=== PATIENT | female | born 1980 | race Caucasian/White ===

== ENCOUNTER 2017-05-01 12:17 | Inpatient (IN) | payer OTHER ==
[2017-05-01] VITALS (42 sets, daily range): BP systolic 108–154; BP diastolic 52–96; PULSE 55–120; TEMP 97.4–98.4
[~2017-05-01] VITALS: Ht 162.6 cm; Wt 95.5 kg
[2017-05-01] MEDS ORDERED: PRENATAL (12:44)
[2017-05-01 14:08] LABS: BASO # 0.1 (0.0-0.2); BASO % 0.3 % (0.0-2.0); EOS # 0.1 (0.0-0.7); EOS % 0.6 % (0-4.0); GRAN # 14.8 (1.4-6.5); GRAN % 79.5 % (42.2-75.2); HEMOGLOBIN 12.6 g/dl (12.5-16.0); LYMPH # 2.5 (1.2-3.4); LYMPH % 13.6 % (20.0-51.0); MEAN CELL VOLUME 88 fl (80.0-100.0); MEAN CORPUSCULAR HEMOGLOBIN 31 pg (27.0-31.0); MEAN CORPUSCULAR HGB CONC 35 g/dl (33.0-37.0); MEAN PLATELET VOLUME 10.6 fl (7.4-10.4); MONO % 5.4 % (1.7-9.3); PLATELET COUNT 241 K/mm3 (130-400); RED BLOOD COUNT 4.09 M/mm3 (4.10-5.30); REDCELL DISTRIBUTION WIDTH-CV 13.8 % (11.5-14.5)
[2017-05-02] VITALS (15 sets, daily range): BP systolic 89–143; BP diastolic 43–75; PULSE 69–123; TEMP 97.4–98.3
[2017-05-03 01:00] VITALS: BP 128/69; PULSE 67; TEMP 97.9
[2017-05-03 07:51] VITALS: BP 123/85; PULSE 66; TEMP 97.3
[2017-05-03] MEDS ORDERED: PERCOCET 325 MG1 TA2 PO (11:03)
[2017-05-03] MEDS ORDERED: IBU600 MG PO (11:03)
[2017-05-03 16:07] VITALS: BP 127/70; PULSE 59; TEMP 97.7
[2017-05-03 19:45] VITALS: BP 130/82; PULSE 62; TEMP 98
[2017-05-04 06:45] VITALS: BP 125/65; PULSE 61; TEMP 97.5
[2017-05-04 16:23] VITALS: BP 128/73; PULSE 56; TEMP 97.6
== END 2017-05-04 18:00 | disposition home or self-care (01) | DRG 775 ==
LOC: LDRO 12:17 → LDR 12:54 → LDRO 13:49 → OB 13:51 → LDR 13:51 → OB 05-02 03:50
PROVIDERS: Obstetrics & Gynecology
PROC: 10E0XZZ Delivery of Products of Conception, External Approach (ICD-10-PCS; principal; 2017-05-01)
PROC: 0HQ9XZZ Repair Perineum Skin, External Approach (ICD-10-PCS; 2017-05-01)
DX: O48.0 Post-term pregnancy (principal); O71.82 Other specified trauma to perineum and vulva; Z3A.40 40 weeks gestation of pregnancy; Z37.0 Single live birth
CPT/HCPCS: J2590; J7120

== ENCOUNTER → 2017-05-16 | Outpatient (CLI) | payer OTHER ==
[~2017-05-16] MED LIST: IBU600 MG PO; PERCOCET 325 MG1 TA2 PO; PRENATAL
== END ==
LOC: OLC 13:11
DX: Z39.1 Encounter for care and examination of lactating mother (principal); Z71.89 Other specified counseling

== ENCOUNTER → 2018-01-12 | Outpatient (CLI) | payer OTHER | LOC: MC.RAD 08:30 | DX: N63.10 Unspecified lump in the right breast, unspecified quadrant (principal); Z80.3 Family history of malignant neoplasm of breast; Z98.890 Other specified postprocedural states | CPT/HCPCS: G0279 ==

== ENCOUNTER 2019-05-28 23:33 | Observation (INO) | payer OTHER ==
[~2019-05-28] VITALS: Ht 162.6 cm; Wt 84.5 kg
--- NOTE | 2019-05-29 00:35 | NUR ---
0035- OB NURSE TO BEDSIDE. PT DENIES LEAKING FLUID, VAGINAL BLEEDING, OR CONTRACTIONS. STATES SHE IS FEELING BOTH BABIES MOVE. DOPPLER HEART TONES OBTAINED ON BOTH BABIES. BABY A IN LLQ 135-155 WITH AUDIBLE MOVEMENT. BABY B RUQ 150-165 WITH AUDIBLE MOVEMENT. PT DENIES FURTHER NEEDS AT THIS TIME.
[2019-05-29 00:36] LABS: COLLECTION METHOD CLEAN CATCH
[2019-05-29 00:39] LABS: BASO # 0.1 (0.0-0.2); BASO % 0.3 % (0.0-2.0); EOS # 0.2 (0.0-0.7); EOS % 0.7 % (0-4.0); GRAN # 17.2 (1.4-6.5); GRAN % 79.8 % (42.2-75.2); HEMOGLOBIN 11.8 g/dl (12.5-16.0); LYMPH # 2.8 (1.2-3.4); LYMPH % 12.9 % (20.0-51.0); MEAN CELL VOLUME 89 fl (80.0-100.0); MEAN CORPUSCULAR HEMOGLOBIN 30 pg (27.0-31.0); MEAN CORPUSCULAR HGB CONC 34 g/dl (33.0-37.0); MEAN PLATELET VOLUME 10.1 fl (7.4-10.4); MONO # 1.2 (0.1-0.6); MONO % 5.6 % (1.7-9.3); PLATELET COUNT 289 K/mm3 (130-400); RED BLOOD COUNT 3.94 M/mm3 (4.10-5.30)
[2019-05-29 00:42] LABS: HEMATOCRIT 34.9 % (37.0-47.0)
[2019-05-29 00:46] LABS: MUCOUS Present /lpf; PH 5 (5-8); URINE APPEARANCE Cloudy; URINE BACTERIA Rare /hpf; URINE BILIRUBIN Negative (NEGATIVE); URINE BLOOD 2+ (NEGATIVE); URINE COLOR Yellow; URINE GLUCOSE 1+ (NEGATIVE); URINE KETONE 1+ (NEGATIVE); URINE LEUKOCYTE ESTERASE 2+ (NEGATIVE); URINE NITRATE Negative (NEGATIVE); URINE PROTEIN(semi-quant) 1+ (NEGATIVE); URINE UROBILINOGEN Negative (NEGATIVE)
[2019-05-29 00:50] LABS: ALBUMIN 3.9 gm/dL (3.5-5.0); BILIRUBIN,TOTAL 0.3 mg/dL (0.0-1.0); C-REACTIVE PROTEIN 1.1 mg/dL (0.0-0.9); CALCIUM 9.7 mg/dL (8.4-10.2); CREATININE, serum 0.69 (0.52-1.25); POTASSIUM 3.9 mmol/L (3.4-5.0); TOTAL PROTEIN 7.3 gm/dL (6.4-8.2)
[2019-05-29 03:07] LABS: COLLECTION METHOD CLEAN CATCH
[2019-05-29 03:12] LABS: MUCOUS Present /lpf; PH 6 (5-8); SQUAMOUS EPITHELIAL 0-2 /hpf; URINE APPEARANCE Clear; URINE BACTERIA None Seen /hpf; URINE BILIRUBIN Negative (NEGATIVE); URINE BLOOD 2+ (NEGATIVE); URINE COLOR Yellow; URINE GLUCOSE Negative (NEGATIVE); URINE KETONE Trace (NEGATIVE); URINE LEUKOCYTE ESTERASE Negative (NEGATIVE); URINE NITRATE Negative (NEGATIVE); URINE PROTEIN(semi-quant) 1+ (NEGATIVE); URINE RBC 0-2 /hpf; URINE UROBILINOGEN Negative (NEGATIVE)
--- NOTE | 2019-05-29 03:42 | NUR ---
0342- REPORT RECEIVED FROM ROSA CRAMER IN ER. 0405- PT TRANFERRED ON UNIT PER WHEELCHAIR, TO ROOM 217. 0410- NURSING ADMISSION HISTORY AND ASSESSMENT COMPLETE. VSS. AMNITRACE NEGNATHALIAVIE FOR AMNIOTIC FLUID. PLAN OF CARE DISCUSSED WITH PT AND HER . QUESTIONS ANSWERED. PT DENIES FURTHER NEEDS AT THIS TIME.
[2019-05-29 04:10] VITALS: BP 114/65; PULSE 74; TEMP 97.7
[2019-05-29] MEDS ORDERED: BONJESTA ER 201 EACH PO (04:31)
[2019-05-29 07:30] VITALS: BP 111/56; PULSE 76; TEMP 98.4
--- NOTE | 2019-05-29 07:30 | NUR ---
To room and assessment and vital signs completed. Bedside doppler on twins. Twin A in left lower quadrant FHR 142-158. Twin B in right upper quadrant FHR 148-158. Patient states she is feeling so much better and denies any pain.
--- NOTE | 2019-05-29 07:40 | NUR ---
Patient out of room via wheelchair and taken for Ultrasound.
--- NOTE | 2019-05-29 08:26 | NUR ---
Dr. Miller at nurses station, labs reviews, report that patient states she is feeling fine and denies pain, FHR's reported, materal vital signs reported, patient currently off unit for ultrasound.
[2019-05-29 12:33] VITALS: BP 119/67; PULSE 79; TEMP 97.8
[2019-05-29 12:45] LABS: BASO # 0.1 (0.0-0.2); BASO % 0.4 % (0.0-2.0); EOS # 0.1 (0.0-0.7); EOS % 0.6 % (0-4.0); GRAN # 12.4 (1.4-6.5); GRAN % 77.5 % (42.2-75.2); HEMOGLOBIN 10.5 g/dl (12.5-16.0); LYMPH # 2.5 (1.2-3.4); LYMPH % 15.4 % (20.0-51.0); MEAN CELL VOLUME 88 fl (80.0-100.0); MEAN CORPUSCULAR HEMOGLOBIN 30 pg (27.0-31.0); MEAN CORPUSCULAR HGB CONC 34 g/dl (33.0-37.0); MEAN PLATELET VOLUME 9.9 fl (7.4-10.4); MONO # 0.9 (0.1-0.6); MONO % 5.7 % (1.7-9.3); PLATELET COUNT 256 K/mm3 (130-400); RED BLOOD COUNT 3.51 M/mm3 (4.10-5.30); REDCELL DISTRIBUTION WIDTH-CV 14.3 % (11.5-14.5)
--- NOTE | 2019-05-29 15:41 | NUR ---
Patient ate a grilled chicken sandwich and grapes and finished around 1330. Patient denies any pain after eating. Patient very tearful and still unsure if she wants to have surgery now or wait. Is talking with family about it. Will notify this nurse when she makes her decision.
[2019-05-29 15:43] VITALS: BP 116/66; PULSE 80; TEMP 98
--- NOTE | 2019-05-29 16:04 | NUR ---
Patient has decided to continue with surgery. Will call Dr. Mccollum for further orders.
[2019-05-30] MEDS ORDERED: TYLENOL 325MG325 MG PO (09:29)
== END 2019-05-29 17:50 | disposition home or self-care (01) ==
LOC: COL.ER 23:33 → OB 05-29 03:02
PROVIDERS: Emergency Medicine; Surgery; ADMIT Student in an Organized Health Care Education/Training Program
DX: O99.612 Diseases of the digestive system complicating pregnancy, second trimester (principal); K80.00 Calculus of gallbladder with acute cholecystitis without obstruction; Z3A.21 21 weeks gestation of pregnancy
CPT/HCPCS: G0378; J0690; J1100; J2405; J2704; J3010; J7030

== ENCOUNTER 2019-05-30 08:25 | Day surgery (SDC) | payer OTHER ==
[2019-05-30] VITALS (11 sets, daily range): BP systolic 101–126; BP diastolic 50–83; PULSE 75–86; TEMP 97.5–98.7
[~2019-05-30] VITALS: Ht 162.6 cm; Wt 86.7 kg
[~2019-05-30 08:25] MED LIST changes: +BONJESTA ER 201 EACH PO
--- NOTE | 2019-05-30 08:54 | NUR ---
This RN to preop bay 3 to doppler FHR for twin gestation prior to surgery. Dr. Miller at bedside. Patient denies contractions or cramping, vaginal bleeding or loss of fluid. Patient reports normal movement. EFM applied, FHR baby A 145 bpm, FHR baby B [address] Miller reviews FHR strip. No further orders.
[2019-05-30] MEDS ORDERED: TYLENOL 325MG325 MG PO (09:29)
--- NOTE | 2019-05-30 09:31 | NUR ---
DR BOLIVAR IN TALKING WITH PATIENT AND . DR MARIE EUGENE INTO SEE PATIENT PRIOR TO SURGERY
--- NOTE | 2019-05-30 11:05 | NUR ---
This RN to PACU to doppler for twin gestation following surgery. FHR baby A noted 145 bpm with variable deceleration noted. FHR baby B noted 145 bpm. FHR baby A noted left lower quadrant, baby B noted upper right quadrant. Patient denies contractions or cramping and other OB complaints.
--- NOTE | 2019-05-30 11:40 | NUR ---
Patient to room 222 via bed. Alert and oriented x4, oriented to new room and plan of care. VSS. Patient reports constant "slight discomfort in upper abdomen and middle of my back", denies contractions or uterine cramping, ROM, or vaginal bleeding. Surgical sites CDI. Patient denies need at this time, family at bedside, call light in reach. Will monitor per protocol and orders. Denies need for pain medication.
--- NOTE | 2019-05-30 12:33 | NUR ---
Follow-up visit; Patient thanked [employer] for looking in on her and offering get well blessings.
[2019-05-31 03:40] VITALS: BP 105/63; PULSE 91; TEMP 98.9
[2019-05-31 07:40] VITALS: BP 107/71; PULSE 75; TEMP 98.1
[2019-05-31] MEDS ORDERED: NORCO 325 MG-51 TAB PO (09:14)
--- NOTE | 2019-06-01 10:32 | NUR ---
Family had been released from the hospital.
== END 2019-05-31 10:25 | disposition home or self-care (01) ==
LOC: SDCO 08:25 → OB 11:04 → SDCO 11:04 → OB 11:04 → SDCO 05-31 10:25
DX: O99.612 Diseases of the digestive system complicating pregnancy, second trimester (principal); K80.12 Calculus of gallbladder with acute and chronic cholecystitis without obstruction; Z3A.21 21 weeks gestation of pregnancy
CPT/HCPCS: J7120

== ENCOUNTER 2019-09-15 10:09 | Inpatient (IN) | payer OTHER ==
[~2019-09-15] VITALS: Ht 162.6 cm; Wt 92.0 kg
[2019-09-15] VITALS (27 sets, daily range): BP systolic 38–175; BP diastolic 56–96; PULSE 56–105; TEMP 97.9–98.6
[~2019-09-15 10:09] MED LIST changes: +NORCO 325 MG-51 TAB PO; +TYLENOL 325MG325 MG PO
--- NOTE | 2019-09-15 10:15 | NUR ---
Pt arrives on unit ambulatory for NST and BP check. States 140s-160s systolic BP over the weekened with increase of swelling in left leg. Mild headache x1 relieved with Tylenol. One epidsode of blurry vission x 30 seconds. Denies RUQ pn, ctx, LOF, vaginal bleeding and reports GFM. EFM x 2 and toco applied. BP elevated. Admission asssessment completed. Consents signed. Pt updated on POC. Bed locked in low position. Call light within reach. No questions or concerns at this time.
[2019-09-15 12:52] LABS: COLLECTION METHOD CLEAN CATCH
[2019-09-15 12:56] LABS: BASO % 0.5 % (0.0-2.0); EOS # 0.1 (0.0-0.7); EOS % 1.2 % (0-4.0); GRAN # 4.3 (1.4-6.5); GRAN % 52.8 % (42.2-75.2); HEMATOCRIT 38.9 % (37.0-47.0); HEMOGLOBIN 13.3 g/dl (12.5-16.0); LYMPH # 2.7 (1.2-3.4); LYMPH % 33.4 % (20.0-51.0); MEAN CELL VOLUME 90 fl (80.0-100.0); MEAN CORPUSCULAR HEMOGLOBIN 31 pg (27.0-31.0); MEAN CORPUSCULAR HGB CONC 34 g/dl (33.0-37.0); MEAN PLATELET VOLUME 12.8 fl (7.4-10.4); MONO # 0.9 (0.1-0.6); MONO % 11.4 % (1.7-9.3); PLATELET COUNT 164 K/mm3 (130-400); RED BLOOD COUNT 4.31 M/mm3 (4.10-5.30); REDCELL DISTRIBUTION WIDTH-CV 13.4 % (11.5-14.5)
[2019-09-15 13:00] LABS: MUCOUS Present /lpf; PH 5 (5-8); URINE APPEARANCE Hazy; URINE BACTERIA Rare /hpf; URINE BILIRUBIN Negative (NEGATIVE); URINE BLOOD 1+ (NEGATIVE); URINE COLOR Yellow; URINE GLUCOSE Negative (NEGATIVE); URINE KETONE Negative (NEGATIVE); URINE LEUKOCYTE ESTERASE 2+ (NEGATIVE); URINE NITRATE Negative (NEGATIVE); URINE PROTEIN(semi-quant) 3+ (NEGATIVE); URINE UROBILINOGEN Negative (NEGATIVE); URINE WBC 20-50 /hpf
[2019-09-15 13:17] LABS: ALBUMIN 2.8 gm/dL (3.5-5.0); BILIRUBIN,TOTAL 0.4 mg/dL (0.0-1.0); CALCIUM 8.6 mg/dL (8.4-10.2); CREATININE, serum 1.12 (0.52-1.25); POTASSIUM 4.1 mmol/L (3.4-5.0); TOTAL PROTEIN 5.7 gm/dL (6.4-8.2)
--- NOTE | 2019-09-15 22:20 | NUR ---
URINE OUTPUT REPORTED TO DR CASTREJON 50CC/3 HRS. LUNGS CLEAR. PEDAL EDEMA PRESENT. URINE LT YELLOW. BPS REPORTED. ORDERS TO REPLACE ORTEGA NOW AND DRAW CBC AND CMP NOW
[2019-09-15 22:35] LABS: MEAN CELL VOLUME 91 fl (80.0-100.0); MEAN CORPUSCULAR HGB CONC 34 g/dl (33.0-37.0); MEAN PLATELET VOLUME 11.5 fl (7.4-10.4); PLATELET COUNT 167 K/mm3 (130-400); RED BLOOD COUNT 2.82 M/mm3 (4.10-5.30); REDCELL DISTRIBUTION WIDTH-CV 13.5 % (11.5-14.5)
[2019-09-15 22:41] LABS: HEMATOCRIT 25.6 % (37.0-47.0); HEMOGLOBIN 8.8 g/dl (12.5-16.0); MEAN CORPUSCULAR HEMOGLOBIN 31 pg (27.0-31.0)
--- NOTE | 2019-09-15 22:45 | NUR ---
New hinojosa inserted. No urine return. Bladder scan 0 cc.
[2019-09-15 22:46] LABS: ALBUMIN 2.2 gm/dL (3.5-5.0); BILIRUBIN,TOTAL 0.3 mg/dL (0.0-1.0); CALCIUM 7.7 mg/dL (8.4-10.2); CREATININE, serum 2.14 (0.52-1.25); POTASSIUM 4.6 mmol/L (3.4-5.0); TOTAL PROTEIN 4.6 gm/dL (6.4-8.2)
[2019-09-15 22:55] LABS: BAND 10 % (0-10); EOSINOPHIL 1 % (0-4); LYMPHOCYTE 14 % (20.0-51.0); METAMYELOCYTE 1 % (0-0); NEUTROPHILS 70 % (42.0-75.2); PLATELET ESTIMATE NORMAL (NORMAL)
--- NOTE | 2019-09-15 23:30 | NUR ---
7805 dr chiu here to see pt 0030 fluid restrictins begun- 0035 hospitalist here
--- NOTE | 2019-09-16 00:13 | NUR ---
[facility]. MOM STILL HAVE DECREASED URINE OUTPUT- ORTEGA IS CHECKED TO MAKE SURE THERE ARE NO KINKS IN TUBING AND PLACEMENT IS SECURE.
--- NOTE | 2019-09-16 00:16 | NUR ---
PT STILL HAS LIMITED OUTPUT- IS DRINKING WELL PO- PLAN OF CARE DISCUSSED WITH HER AND LAB RESULTS DISCUSSED WITH
[2019-09-16 02:27] LABS: URINE PROTEIN:CREAT RATIO 1.29 (0.00-0.14)
--- NOTE | 2019-09-16 02:44 | NUR ---
DIZZY WHEN UP TO BR AFTE 2 MIN. PERICARE DONE - QUICKLY RETURNS TO BED WITH ASSIST
[2019-09-16 02:45] VITALS: BP 78/55; PULSE 111; TEMP 97.8
[2019-09-16 03:10] VITALS: BP 114/76; PULSE 80
--- NOTE | 2019-09-16 03:10 | NUR ---
[facility]
[2019-09-16 04:21] LABS: CALCIUM 7.8 mg/dL (8.4-10.2); CREATININE, serum 2.45 (0.52-1.25); POTASSIUM 5.1 mmol/L (3.4-5.0)
[2019-09-16 07:00] VITALS: BP 139/88; PULSE 83; TEMP 98.8
[2019-09-16 08:03] LABS: BASO # 0.1 (0.0-0.2); BASO % 0.4 % (0.0-2.0); GRAN # 11.9 (1.4-6.5); GRAN % 76.8 % (42.2-75.2); LYMPH # 2.2 (1.2-3.4); LYMPH % 14.1 % (20.0-51.0); MEAN CELL VOLUME 92 fl (80.0-100.0); MEAN CORPUSCULAR HGB CONC 34 g/dl (33.0-37.0); MEAN PLATELET VOLUME 12.5 fl (7.4-10.4); MONO # 1.3 (0.1-0.6); MONO % 8.3 % (1.7-9.3); PLATELET COUNT 164 K/mm3 (130-400); RED BLOOD COUNT 2.37 M/mm3 (4.10-5.30); REDCELL DISTRIBUTION WIDTH-CV 13.7 % (11.5-14.5)
[2019-09-16 08:06] LABS: HEMATOCRIT 21.8 % (37.0-47.0); HEMOGLOBIN 7.5 g/dl (12.5-16.0); MEAN CORPUSCULAR HEMOGLOBIN 32 pg (27.0-31.0)
[2019-09-16 08:12] LABS: ALBUMIN 2.3 gm/dL (3.5-5.0); BILIRUBIN,TOTAL 0.3 mg/dL (0.0-1.0); CALCIUM 7.9 mg/dL (8.4-10.2); CREATININE, serum 2.54 (0.52-1.25); POTASSIUM 5.1 mmol/L (3.4-5.0); TOTAL PROTEIN 4.8 gm/dL (6.4-8.2)
--- NOTE | 2019-09-16 09:53 | NUR ---
PATIENT UP TO BATHROOM FOR PERICARE AND AMBULATE IN HALLS. TOLERATES WELL NO DIZZINESS NOTED.
--- NOTE | 2019-09-16 10:07 | NUR ---
DIETARY CALLED AT THIS TIME TO DISCUSS LOW POTASSIUM/RENAL DIET WITH PATIENT
--- NOTE | 2019-09-16 11:23 | NUR ---
1100 +3 EDEMA TO LEGS AND FEET FROM KNEES DOWN. LUNGS CLEAR, SAO2 98% ON RROM AIR. [address] BUMEX G[address] IV PER DR MCINTYRE
[2019-09-16 12:09] VITALS: BP 118/72; PULSE 76; TEMP 98.1
[2019-09-16 15:59] VITALS: BP 124/72; PULSE 86; TEMP 98.1
--- NOTE | 2019-09-16 16:03 | NUR ---
4790 PATIENT UP AMBULATE IN ROOM AND TO SHOWER. TOLERATE SHOWER WELL. DRESSING OFF. INC CDI. BED LINEN CHANGED. PATIENT BACK TO BED TO REST. SAO2 99%
[2019-09-16 22:00] VITALS: BP 131/85; PULSE 80; TEMP 98.4
[2019-09-17] VITALS (13 sets, daily range): BP systolic 140–156; BP diastolic 73–90; PULSE 50–94; TEMP 97.7–98.8
[2019-09-17 08:03] LABS: BASO % 0.2 % (0.0-2.0); EOS # 0.4 (0.0-0.7); EOS % 3.2 % (0-4.0); GRAN # 7.9 (1.4-6.5); GRAN % 69.5 % (42.2-75.2); LYMPH # 2.1 (1.2-3.4); LYMPH % 18.6 % (20.0-51.0); MEAN CELL VOLUME 93 fl (80.0-100.0); MEAN CORPUSCULAR HGB CONC 34 g/dl (33.0-37.0); MEAN PLATELET VOLUME 11.2 fl (7.4-10.4); MONO # 0.9 (0.1-0.6); MONO % 8.1 % (1.7-9.3); PLATELET COUNT 166 K/mm3 (130-400); RED BLOOD COUNT 1.87 M/mm3 (4.10-5.30); REDCELL DISTRIBUTION WIDTH-CV 14.2 % (11.5-14.5)
[2019-09-17 08:12] LABS: HEMATOCRIT 17.4 % (37.0-47.0); HEMOGLOBIN 5.9 g/dl (12.5-16.0); MEAN CORPUSCULAR HEMOGLOBIN 32 pg (27.0-31.0)
[2019-09-17 08:37] LABS: ALBUMIN 2.5 gm/dL (3.5-5.0); BILIRUBIN,TOTAL 0.2 mg/dL (0.0-1.0); CALCIUM 7.9 mg/dL (8.4-10.2); CREATININE, serum 2.28 (0.52-1.25); POTASSIUM 4.4 mmol/L (3.4-5.0)
[2019-09-17 15:31] LABS: HEMATOCRIT 20.2 % (37.0-47.0); HEMOGLOBIN 6.8 g/dl (12.5-16.0)
--- NOTE | 2019-09-18 03:02 | NUR ---
Patient calls out and states she woke up and was shaking. Patient back in bed after voiding. VS stable, auscultation of heart normal rate and rhythm, lungs clear bilaterally. 3+ pitting edema noted in feet, ankles, shins and up knees. Shaking much improved after resting for a few minutes. Patient resting in bed, warm blanket given and call light in reach.
[2019-09-18 03:05] VITALS: BP 156/78; PULSE 78; TEMP 98.7
[2019-09-18 03:50] VITALS: BP 152/82; PULSE 84; TEMP 99
[2019-09-18 07:14] VITALS: BP 144/68; PULSE 84; TEMP 98.6
[2019-09-18 07:46] LABS: BASO % 0.2 % (0.0-2.0); EOS # 0.5 (0.0-0.7); EOS % 3.9 % (0-4.0); GRAN # 9.5 (1.4-6.5); GRAN % 74.2 % (42.2-75.2); LYMPH # 1.9 (1.2-3.4); LYMPH % 14.7 % (20.0-51.0); MEAN CELL VOLUME 91 fl (80.0-100.0); MEAN CORPUSCULAR HGB CONC 34 g/dl (33.0-37.0); MEAN PLATELET VOLUME 10.7 fl (7.4-10.4); MONO # 0.8 (0.1-0.6); MONO % 6.4 % (1.7-9.3); PLATELET COUNT 180 K/mm3 (130-400); RED BLOOD COUNT 2.29 M/mm3 (4.10-5.30); REDCELL DISTRIBUTION WIDTH-CV 15.5 % (11.5-14.5)
[2019-09-18 07:47] LABS: HEMATOCRIT 20.8 % (37.0-47.0); HEMOGLOBIN 7.1 g/dl (12.5-16.0); MEAN CORPUSCULAR HEMOGLOBIN 31 pg (27.0-31.0)
[2019-09-18 08:07] LABS: ALBUMIN 2.4 gm/dL (3.5-5.0); CALCIUM 7.8 mg/dL (8.4-10.2); CREATININE, serum 1.32 (0.52-1.25); PHOSPHOROUS 3.1 mg/dL (2.5-4.5); POTASSIUM 4.3 mmol/L (3.4-5.0)
[2019-09-18] MEDS ORDERED: LASIX 20MG TABL20 MG PO (13:37)
[2019-09-18 15:29] LABS: HEMATOCRIT 23.2 % (37.0-47.0); HEMOGLOBIN 7.7 g/dl (12.5-16.0)
[2019-09-18 16:45] VITALS: BP 142/73; PULSE 68; TEMP 98.4
[2019-09-18 20:00] VITALS: BP 154/81; PULSE 72; TEMP 98.8
[2019-09-19 00:25] VITALS: BP 155/78; PULSE 70; TEMP 98.4
[2019-09-19 05:35] VITALS: BP 154/80; PULSE 79
[2019-09-19 07:00] VITALS: BP 135/84; PULSE 76; TEMP 98.1
[2019-09-19 07:02] LABS: BASO % 0.3 % (0.0-2.0); EOS # 0.6 (0.0-0.7); EOS % 5.1 % (0-4.0); GRAN # 7.2 (1.4-6.5); GRAN % 65.3 % (42.2-75.2); LYMPH # 2.5 (1.2-3.4); LYMPH % 22.5 % (20.0-51.0); MEAN CELL VOLUME 92 fl (80.0-100.0); MEAN CORPUSCULAR HGB CONC 34 g/dl (33.0-37.0); MEAN PLATELET VOLUME 10.3 fl (7.4-10.4); MONO # 0.7 (0.1-0.6); MONO % 6.3 % (1.7-9.3); PLATELET COUNT 226 K/mm3 (130-400); RED BLOOD COUNT 2.33 M/mm3 (4.10-5.30); REDCELL DISTRIBUTION WIDTH-CV 15.3 % (11.5-14.5)
[2019-09-19 07:06] LABS: HEMATOCRIT 21.4 % (37.0-47.0); HEMOGLOBIN 7.2 g/dl (12.5-16.0); MEAN CORPUSCULAR HEMOGLOBIN 31 pg (27.0-31.0)
[2019-09-19 07:07] LABS: ALBUMIN 2.5 gm/dL (3.5-5.0); CALCIUM 8.1 mg/dL (8.4-10.2); CREATININE, serum 1.04 (0.52-1.25); PHOSPHOROUS 2.9 mg/dL (2.5-4.5); POTASSIUM 4.3 mmol/L (3.4-5.0)
[2019-09-19 07:28] LABS: ALANINE AMINOTRANSFERASE 23 U/L (4-34); AST,SGOT 67 U/L (15-37)
[2019-09-19] MEDS ORDERED: NATURAL IRON65 MG PO (09:20)
[2019-09-19] MEDS ORDERED: PERCOCET 325 MG1 TA2 PO (09:21)
[2019-09-19 16:09] VITALS: BP 134/88; PULSE 78; TEMP 98.2
[2019-09-19 19:45] VITALS: BP 159/94; PULSE 96; TEMP 98.3
[2019-09-20 07:21] VITALS: BP 162/88; PULSE 73; TEMP 98.1
[2019-09-20 07:59] LABS: BASO % 0.2 % (0.0-2.0); EOS # 0.4 (0.0-0.7); EOS % 3.9 % (0-4.0); GRAN # 7.2 (1.4-6.5); GRAN % 69.8 % (42.2-75.2); LYMPH # 1.9 (1.2-3.4); LYMPH % 18.4 % (20.0-51.0); MEAN CELL VOLUME 92 fl (80.0-100.0); MEAN CORPUSCULAR HGB CONC 33 g/dl (33.0-37.0); MEAN PLATELET VOLUME 9.2 fl (7.4-10.4); MONO # 0.8 (0.1-0.6); MONO % 7.3 % (1.7-9.3); PLATELET COUNT 272 K/mm3 (130-400); RED BLOOD COUNT 2.58 M/mm3 (4.10-5.30); REDCELL DISTRIBUTION WIDTH-CV 14.9 % (11.5-14.5)
[2019-09-20 08:08] LABS: HEMATOCRIT 23.7 % (37.0-47.0); HEMOGLOBIN 7.9 g/dl (12.5-16.0); MEAN CORPUSCULAR HEMOGLOBIN 31 pg (27.0-31.0)
[2019-09-20 08:09] VITALS: BP 142/88; PULSE 87
[2019-09-20 08:10] LABS: CALCIUM 8.5 mg/dL (8.4-10.2); CREATININE, serum 0.97 (0.52-1.25); PHOSPHOROUS 3.6 mg/dL (2.5-4.5); POTASSIUM 4.3 mmol/L (3.4-5.0)
--- NOTE | 2019-09-20 10:27 | NUR ---
DR. CASTREJON CONTACTED FOR LASIX CLARIFICATION. 20MG TAG GIVEN ONCE YESTERDAY. 20MG TAG PRESCRIBED QD FOR HOME. DR. CASTREJON ORDERS 20MG TAB OF LASIX TO BE GIVEN TODAY PRIOR TO DC.
[2019-09-21] MEDS ORDERED: MIRALAX PA17 GM/Dose PO (21:17)
[2019-09-21] MEDS ORDERED: COLACE 100100 MG/CAP PO (21:18)
== END 2019-09-20 16:48 | disposition home or self-care (01) | DRG 786 ==
LOC: LDRO 10:09 → OB 11:29 → LDR 11:29 → OB 14:37 → LDRO 16:20 → OB 09-20 16:48
PROVIDERS: Internal Medicine Nephrology; Physician Assistant; Student in an Organized Health Care Education/Training Program; ADMIT Student in an Organized Health Care Education/Training Program
PROC: 10D00Z1 Extraction of Products of Conception, Low, Open Approach (ICD-10-PCS; principal; 2019-09-15)
DX: O30.043 Twin pregnancy, dichorionic/diamniotic, third trimester (principal); O90.4 Postpartum acute kidney failure; D62 Acute posthemorrhagic anemia; E87.1 Hypo-osmolality and hyponatremia; N17.9 Acute kidney failure, unspecified; O10.92 Unspecified pre-existing hypertension complicating childbirth; Z37.2 Twins, both liveborn; O99.344 Other mental disorders complicating childbirth; F41.9 Anxiety disorder, unspecified; F32.9 Major depressive disorder, single episode, unspecified; O11.4 Pre-existing hypertension with pre-eclampsia, complicating childbirth; O90.81 Anemia of the puerperium; O12.05 Gestational edema, complicating the puerperium; O99.285 Endocrine, nutritional and metabolic diseases complicating the puerperium; O99.63 Diseases of the digestive system complicating the puerperium; K59.00 Constipation, unspecified; Z3A.36 36 weeks gestation of pregnancy
CPT/HCPCS: 99223; 99232-AI; J0360; J0690; J1885; J1940; J2270; J2370; J2405; J2590; J3010; J7030; J7120; P9016

== ENCOUNTER 2019-09-21 19:17 | Inpatient (IN) | payer OTHER ==
[~2019-09-21] VITALS: Ht 162.6 cm; Wt 87.0 kg
[~2019-09-21 19:17] MED LIST changes: +LASIX 20MG TABL20 MG PO; +NATURAL IRON65 MG PO
--- NOTE | 2019-09-21 20:00 | NUR ---
PT DIRECT ADMIT TO UNIT PER DR. VIRAMONTES, ARRIVED AMBULATORY TO UNIT. ORIENTED TO ROOM, VS OBTAINED. PT STATES ELEVATED BP AT HOME WITH HEADACHE THAT CONTINUES FOLLOWING TAKING PERCOCET AT APPROXIMATELY 1845. WILL NOTIFY DR. VIRAMONTES OF PT ARRIVAL.
[2019-09-21 20:05] VITALS: BP 167/88; PULSE 65; TEMP 98.3
--- NOTE | 2019-09-21 20:30 | NUR ---
ROLES IN ROOM TO EVALUATE PT.
[2019-09-21 20:35] LABS: BASO % 0.4 % (0.0-2.0); EOS # 0.5 (0.0-0.7); EOS % 4.3 % (0-4.0); GRAN # 6.6 (1.4-6.5); GRAN % 63.5 % (42.2-75.2); LYMPH # 2.2 (1.2-3.4); LYMPH % 21.2 % (20.0-51.0); MEAN CELL VOLUME 93 fl (80.0-100.0); MEAN CORPUSCULAR HGB CONC 34 g/dl (33.0-37.0); MEAN PLATELET VOLUME 9.5 fl (7.4-10.4); MONO # 1.1 (0.1-0.6); MONO % 10.1 % (1.7-9.3); PLATELET COUNT 282 K/mm3 (130-400); RED BLOOD COUNT 2.59 M/mm3 (4.10-5.30)
[2019-09-21 20:43] LABS: HEMATOCRIT 24.1 % (37.0-47.0); HEMOGLOBIN 8.1 g/dl (12.5-16.0); MEAN CORPUSCULAR HEMOGLOBIN 31 pg (27.0-31.0)
[2019-09-21 20:50] LABS: ALBUMIN 3.2 gm/dL (3.5-5.0); CALCIUM 8.8 mg/dL (8.4-10.2); CREATININE, serum 0.87 (0.52-1.25); POTASSIUM 4.5 mmol/L (3.4-5.0); TOTAL PROTEIN 6.4 gm/dL (6.4-8.2)
[2019-09-21 20:56] VITALS: BP 167/88; PULSE 65; TEMP 98.3
[2019-09-21 21:00] VITALS: BP 167/88; PULSE 65; TEMP 98.3
[2019-09-21] MEDS ORDERED: MIRALAX PA17 GM/Dose PO (21:17)
[2019-09-21] MEDS ORDERED: COLACE 100100 MG/CAP PO (21:18)
[2019-09-21 21:55] VITALS: BP 152/88; PULSE 74; TEMP 97.9
[2019-09-22 01:02] VITALS: BP 151/83; PULSE 71; TEMP 98.9
[2019-09-22 05:12] VITALS: BP 146/78; PULSE 71; TEMP 98.7
[2019-09-22 07:30] VITALS: BP 153/82; PULSE 68; TEMP 97.8
[2019-09-22 07:41] LABS: CALCIUM 8.5 mg/dL (8.4-10.2); CREATININE, serum 0.9 (0.52-1.25); POTASSIUM 4.6 mmol/L (3.4-5.0)
[2019-09-22] MEDS ORDERED: APRESOLINE 10MG10 MG PO (10:49)
[2019-09-22] MEDS ORDERED: TOPROL XL 25MG25 MG PO (10:50)
[2019-09-22 11:15] VITALS: BP 138/80; PULSE 76; TEMP 98.1
--- NOTE | 2019-09-22 11:30 | NUR ---
1100 DR ZAMORA AT BEDSIDE TO ASSESS PATIENT AND DISCUSSED ALL DISCHARGE INSTRUCTIONS, VERBAL UNDERSTANDING NOTED BY PATIENT. DR VALENCIA ALSO AT BEDSIDE. 1130 ALL DISCHARGE INSTRUCTIONS GIVEN AND IV DC'D. PATIENT DISMISSED TO CAR PER PRIVATE VEHICLE.
== END 2019-09-22 11:34 | disposition home or self-care (01) | DRG 776 ==
LOC: OB 19:17
PROVIDERS: Internal Medicine Nephrology; ADMIT Obstetrics & Gynecology
DX: O14.15 Severe pre-eclampsia, complicating the puerperium (principal); O90.4 Postpartum acute kidney failure; O90.81 Anemia of the puerperium; D64.9 Anemia, unspecified; O99.345 Other mental disorders complicating the puerperium; F41.9 Anxiety disorder, unspecified; F32.9 Major depressive disorder, single episode, unspecified

== ENCOUNTER → 2019-12-10 | Outpatient (CLI) | payer OTHER ==
[~2019-12-10] MED LIST changes: +APRESOLINE 10MG10 MG PO; +COLACE 100100 MG/CAP PO; +MIRALAX PA17 GM/Dose PO; +TOPROL XL 25MG25 MG PO
== END ==
LOC: ZCOL.LAB 16:05
DX: Z20.828 Contact with and (suspected) exposure to other viral communicable diseases (principal)

== ENCOUNTER → 2020-01-22 | Outpatient (CLI) | payer OTHER | LOC: COL.RAD 10:08 | DX: N83.201 Unspecified ovarian cyst, right side (principal); N83.202 Unspecified ovarian cyst, left side; Z90.49 Acquired absence of other specified parts of digestive tract | CPT/HCPCS: Q9967 ==

== ENCOUNTER → 2020-01-28 | Outpatient (CLI) | payer OTHER | LOC: MC.RAD 15:45 | DX: Z12.31 Encounter for screening mammogram for malignant neoplasm of breast (principal) ==